=== PATIENT | female | born 2000 | race Caucasian/White ===

== ENCOUNTER → 2019-04-28 | Outpatient (CLI) | payer OTHER | LOC: LAB 11:27 | DX: J03.90 Acute tonsillitis, unspecified (principal) ==

== ENCOUNTER → 2020-07-17 | Outpatient (CLI) | payer OTHER | LOC: LAB 11:30 | DX: Z20.828 Contact with and (suspected) exposure to other viral communicable diseases (principal) ==

== ENCOUNTER → 2020-11-19 | Outpatient (CLI) | payer OTHER ==
[2020-11-19 11:17] LABS: EOS # 0.2 (0.04-0.40); HEMATOCRIT 41.2 % (35.0-45.0); HEMOGLOBIN 12.8 g/dL (12.0-15.0); LYMPH# 2.8 (1.20-3.40); MEAN CELL VOLUME 85 fl (78-95); MEAN CORPUSCULAR HEMOGLOBIN 26 pg (26-32); MEAN CORPUSCULAR HGB CONC 31 g/dL (33-37); MEAN PLATELET VOLUME 8.5 fl (7.4-10.4); MONO # 0.6 (0.10-0.60); NEU # 3.2 (1.40-6.50); PLATELET COUNT 398 K/mm3 (130-400); RED BLOOD COUNT 4.84 M/mm3 (4.10-5.30); RED CELL DISTRIBUTION WIDTH 14.3 % (11.5-14.5); WHITE BLOOD COUNT 6.9 K/mm3 (4.8-10.8)
[2020-11-19 11:21] LABS: ALBUMIN 4.1 g/dL (3.5-5.0); POTASSIUM 4.5 mmol/L (3.5-5.1)
[2020-11-19 11:23] LABS: CALCIUM 9.3 mg/dL (8.3-10.5)
[2020-11-19 11:24] LABS: TOTAL PROTEIN 7.4 g/dL (6.4-8.3)
[2020-11-19 11:26] LABS: TOTAL BILIRUBIN 0.3 mg/dL (0.2-1.2)
== END ==
LOC: LAB 10:55
PROVIDERS: Family Medicine
DX: Z00.00 Encounter for general adult medical examination without abnormal findings (principal); E78.5 Hyperlipidemia, unspecified; R73.9 Hyperglycemia, unspecified